=== PATIENT | male | born 1940 | race Caucasian/White ===

== ENCOUNTER → 2023-05-26 | Day surgery (SDC) | payer MEDICARE, OTHER ==
[~2023-05-26] MED LIST: Acetaminophen 325 MG Tab PO PRN; Acetaminophen/Codeine 300-30 MG Tab PO PRN; Apraclonidine 0.5% Ophth Soln 5 ML Bot EYELF ONE; Cataract Ophth Solution EYELF ONE; Dexamethasone/Neomycin/Polymyxin B Ophth Oint 3.5 GM Tube EYELF ONE; Diclofenac Sodium 0.1% Ophth Soln 5 ML Bottle EYELF ONE; Lidocaine 1% 30 ML SDV INJECT ONE; Moxifloxacin 0.5% Ophth Soln 3 ML Bottle EYELF ONE; Ondansetron 4 MG/2 ML SDV IVPUSH PRN; Phenylephrine 10% Ophth Soln 5 ML Bot EYELF ONE; Povidone-Iodine 5% Sterile Ophth Soln 30 ML Bottle EYELF ONE; Proparacaine 0.5% Ophth Soln 15 ML Bottle EYELF ONE; Sodium Chloride 0.9% 10 ML Syringe FLUSH PRN; Timolol Maleate 0.5% Ophth Soln 5 ML Bottle EYELF ONE; Tropicamide 1% Ophth Soln 15 ML Bottle EYELF ONE; Vancomycin 500 MG SDV EYELF ONE
== END | disposition home or self-care (01) ==
LOC: DL.SDS 08:54
PROVIDERS: ATTEND Ophthalmology
DX: H25.812 Combined forms of age-related cataract, left eye (principal); I10 Essential (primary) hypertension; K59.00 Constipation, unspecified; Z79.899 Other long term (current) drug therapy
CPT/HCPCS: A9270-GY; J3370; J3490

== ENCOUNTER 2023-06-02 08:52 | Day surgery (SDC) | payer MEDICARE ==
[2023-06-02] MEDS ORDERED: Midazolam 1 MG/ML 2 ML SDV IV ONE (08:53)
[2023-06-02] MEDS ORDERED: Dexamethasone 4 MG/ML SDV IV ONE (08:53)
[2023-06-02] MEDS ORDERED: Sodium Chloride 0.9% 10 ML Syringe IV ONE (08:53)
[2023-06-02] MEDS ORDERED: Acetaminophen/Codeine 300-30 MG Tab PO PRN (09:00)
[2023-06-02] MEDS ORDERED: Ondansetron 4 MG/2 ML SDV IVPUSH PRN (09:00)
[2023-06-02] MEDS ORDERED: Acetaminophen 325 MG Tab PO PRN (09:00)
[2023-06-02] MEDS: Moxifloxacin 0.5% Ophth Soln 3 ML Bottle EYERT ONE (09:03)
[2023-06-02] MEDS: Proparacaine 0.5% Ophth Soln 15 ML Bottle EYERT ONE ×2 (09:03→09:36)
[2023-06-02] MEDS: Povidone-Iodine 5% Sterile Ophth Soln 30 ML Bottle EYERT ONE ×2 (09:04→09:36)
[2023-06-02] MEDS: Tropicamide 1% Ophth Soln 15 ML Bottle EYERT ONE (09:05)
[2023-06-02] MEDS: Phenylephrine 10% Ophth Soln 5 ML Bot EYERT PRN (09:06)
[2023-06-02] MEDS: Timolol Maleate 0.5% Ophth Soln 5 ML Bottle EYERT ONE (09:06)
[2023-06-02] MEDS: Cataract Ophth Solution EYERT ONE (09:07)
[2023-06-02] MEDS: Sodium Chloride 0.9% 10 ML Syringe FLUSH PRN (09:09)
[2023-06-02] MEDS: Balanced Salt Solution Ophth Irrig 500 ML Bottle IOCULAR ONE (09:42)
[2023-06-02] MEDS: Lidocaine 1% 30 ML SDV ONE (09:42)
[2023-06-02] MEDS: Chondroitin Sulfate/Hyaluronate Sodium Ophth Inj 0.75 ML Syringe EYERT ONE (09:45)
[2023-06-02] MEDS: Vancomycin 500 MG SDV EYERT ONE (09:45)
[2023-06-02] MEDS: Diclofenac Sodium 0.1% Ophth Soln 5 ML Bottle EYERT ONE (09:48)
[2023-06-02] MEDS: Apraclonidine 0.5% Ophth Soln 5 ML Bot EYERT ONE (09:48)
[2023-06-02] MEDS: Dexamethasone/Neomycin/Polymyxin B Ophth Oint 3.5 GM Tube EYERT ONE (09:49)
== END 2023-06-02 10:28 | disposition home or self-care (01) ==
LOC: DL.SDS 08:52
PROVIDERS: ATTEND Ophthalmology
DX: H25.811 Combined forms of age-related cataract, right eye (principal); I10 Essential (primary) hypertension; Z79.899 Other long term (current) drug therapy; Z88.8 Allergy status to other drugs, medicaments and biological substances
CPT/HCPCS: 00142; 99100; A9270-GY; J1100; J2250; J3370; J3490; V2787-GY